=== PATIENT | female | born 1965 | race Caucasian/White ===

== ENCOUNTER 2020-01-24 03:40 | Outpatient (CLI) | payer OTHER, SELFPAY ==
[2020-01-24 11:59] LABS: Anion Gap 4.4 mmol/L (3-11); BUN 9 mg/dL (7-18); CO2 30.6 mmol/L (21.0-32.0); CREATININE 0.83 mg/dL (0.55-1.02); Calculated LDL 131 mg/dL (<100); Chloride 105 mmol/L (98-107); Cholesterol 190 mg/dL (<200); Glucose 93 mg/dL (74-106); HDL Cholesterol 45 mg/dL (40-60); Potassium 4.1 mmol/L (3.5-5.1); Sodium 140 mmol/L (136-145); Triglyceride 74 mg/dL (<150)
== END 2020-01-24 04:00 ==
PROVIDERS: PCP Nurse Practitioner Family; Visit Provider Family Medicine
DX: Z00.00 Encounter for general adult medical examination without abnormal findings (principal); Z13.220 Encounter for screening for lipoid disorders; Z13.228 Encounter for screening for other metabolic disorders
CPT/HCPCS: 36415; 80048; 80061